=== PATIENT | female | born 1950 | race American Indian/Alaskan Native ===

== ENCOUNTER 2020-12-14 08:15 | Outpatient (CLI) | payer MEDICARE | END 2020-12-14 08:16 | disposition home or self-care (01) | LOC: LABHHL 08:15 | PROVIDERS: ATTEND Surgery | DX: N63.21 Unspecified lump in the left breast, upper outer quadrant (principal) | CPT/HCPCS: 88305 ==

== ENCOUNTER 2021-01-01 09:06 | Outpatient (CLI) | payer MEDICARE ==
--- NOTE | 2021-01-01 12:02 | Magnetic Resonance Report ---
Bilateral breast MR without and with contrast. History: Recently diagnosed left breast malignancy at the 2:00 position, assess extent of disease. Comparison: 12/13/2020, 01/18/2020. Technique: Multiplanar multisequence MR images of the breast were obtained before and after the intra venous administration of 16 ml of Clariscan intravenous contrast. Post processing analysis and review was performed on a separate computer workstation. Findings: Breast composition is scattered fibroglandular. There is mild background parenchymal enhancement with in both breasts. LEFT BREAST: Located within the left breast at the 2:00 posterior position is a 2.5 x 1.7 x 2.4 cm ir regular enhancing mass. A biopsy marker is located within posterior extent of this mass. This would c orrespond with the site of reported known biopsy-proven malignancy. Mild post biopsy changes are note d extending to the overlying skin. There is no evidence of skin or pectoralis muscle involvement. No additional suspicious findings within the left breast. RIGHT BREAST: No enhancing mass, dominant focus, or other abnormal enhancement is identified within t he right breast. Mildly enlarged left axillary lymph node with cortical thickness measuring up to 6 mm. No abnormal ri ght axillary lymph nodes or internal mammary lymph nodes. Impression: Known biopsy-proven malignancy within the left breast at the 2:00 position measures up to 2.5 cm. No additional suspicious findings within the left breast. Mildly enlarged left axillary lymph node. A targeted ultrasound of the left axilla may be considered with possible ultrasound guided core biopsy if an abnormal lymph node is identified. BIRADS 0: Incomplete--Needs Additional Imaging Evaluation. Signer Name: Ha Ladd MD Signed: 01/01/2021 11:57 AM Workstation Name: [id number]
== END 2021-01-01 09:07 | disposition home or self-care (01) ==
LOC: SPVIMAG 09:06
PROVIDERS: ATTEND Surgery
DX: C50.412 Malignant neoplasm of upper-outer quadrant of left female breast (principal); N64.89 Other specified disorders of breast; R59.0 Localized enlarged lymph nodes
CPT/HCPCS: A9575; C8908; 77049

== ENCOUNTER 2021-01-08 13:46 | Outpatient (CLI) | payer MEDICARE ==
--- NOTE | 2021-01-08 15:48 | Ultrasound Report ---
LEFT BREAST ULTRASOUND INDICATION: Questionable abnormal lymph nodes noted on recent breast MRI, patient with known left [place] ast malignancy. COMPARISON: MRI 01/01/2021. FINDINGS: A targeted ultrasound of the left axilla was performed. There is no evidence of abnormal ly mph nodes. Multiple lymph nodes are noted with cortical thickness measuring up to 2.7 mm with preserv ed fatty hilum. IMPRESSION: Normal left axillary lymph nodes. Continued clinical management of known left breast malignancy at th e 2:00 position. BI-RADS Category 6: Known Biopsy-Proven Malignancy. Signer Name: Ha Ladd MD Signed: 01/08/2021 3:44 PM Workstation Name: [id number]
== END 2021-01-08 13:47 | disposition home or self-care (01) ==
LOC: SPVWC 13:46
PROVIDERS: ATTEND Surgery
DX: R92.8 Other abnormal and inconclusive findings on diagnostic imaging of breast (principal); R59.0 Localized enlarged lymph nodes

== ENCOUNTER 2021-02-04 06:58 | Day surgery (SDC) | payer MEDICARE ==
[~2021-02-04 06:58] MED LIST: ACETAMINOPHEN 500 MG TAB PO SCH; LACTATED RINGERS 1,000 ML IV SCH; MIDAZOLAM 2 MG/2 ML INJ IV NR; ceFAZolin/STERILE WATER 2 GM/20 ML SYRINGE IV NR
[2021-02-04] MEDS ORDERED: LIDOCAINE (1%) 10 MG/1 ML VIAL 20 ML MDV ONE ×2 (07:45→08:56)
--- NOTE | 2021-02-04 08:48 | Anesthesia Day of Surgery ---
Anesthesia Day of Surgery - Day of Surgery Patient Examined: Yes Patient H&P Reviewed: Yes Patient is NPO: Yes
--- NOTE | 2021-02-04 08:48 | Anesthesia Consultation ---
Anesthesia Consult and Med Hx Date of service: 02/04/21 - Airway Anesthetic Teeth Evaluation: Good ROM Head & Neck: Adequate Mental/Hyoid Distance: Adequate Mallampati Class: Class III Intubation Access Assessment: Possibly Difficult - Pre-Operative Health Status ASA Pre-Surgery Classification: ASA2 Proposed Anesthetic Plan: General Nerve Block: PECS II - Pulmonary Hx Smoking: No Hx Respiratory Symptoms: No - Cardiovascular System Hx Hypertension: Yes (took antihypertensives last night) Hx Heart Attack/AMI: No Hx Percutaneous Transluminal Coronary Angioplasty (PTCA): No - Central Nervous System CVA: No - Endocrine Hx Renal Disease: No Hx Liver Disease: No Hx Insulin Dependent Diabetes: No Hx Non-Insulin Dependent Diabetes: No (borderline DM; no meds) Hx Thyroid Disease: No - Other Systems Hx Cancer: Yes (breast ca no chemo) Hx Obesity: Yes (BMI 36)
--- NOTE | 2021-02-04 08:54 | Mammography Report ---
MAMMOGRAPHIC GUIDED LEFT BREAST NEEDLE LOCALIZATION, 02/04/2021 CLINICAL INFORMATION / INDICATION: LT BREAST CANCER. COMPARISON: 12/13/2020 PROCEDURE: Risks, benefits and indications to the procedure were discussed with the patient. The patient agreed to proceed with both verbal and written consent. A timeout procedure was performed with 2 patient joss ntifiers. The breast was prepped in the usual sterile fashion. Approximately 5cc of Lidocaine was used for loca l anesthesia. Under direct digital mammographic guidance, a localization wire was placed in satisfact ory position with distal tip traversing the targeted area. Post-procedure mammogram confirms satisfac tory positioning of the localization wire. The wire was secured to the skin with a sterile dressing. The patient tolerated procedure without difficulty. No complications were encountered. IMPRESSION: 1. Satisfactory mammographic guided wire localization. Signer Name: Reese Mccarthy MD Signed: 02/04/2021 8:49 AM Workstation Name: [id number]
[2021-02-04] MEDS ORDERED: dexAMETHasone 4 MG/ML VIAL ONE (08:56)
[2021-02-04] MEDS ORDERED: BUPIVACAINE/PF (0.5%) 5 MG/1 ML 30 ML VIAL INFILTRATI ONE (08:56)
[2021-02-04] MEDS ORDERED: propofoL 200 MG/20 ML VIAL IV ONE (08:58)
[2021-02-04] MEDS ORDERED: fentaNYL 100 MCG/2 ML INJ ONE (08:58)
[2021-02-04] MEDS ORDERED: LIDOCAINE PF 100 MG/5 ML (CARDIAC SYRINGE) IV ONE (08:59)
[2021-02-04] MEDS: fentaNYL 100 MCG/2 ML INJ IV PRN ×2 (09:05→09:08)
[2021-02-04] MEDS ORDERED: SODIUM CHLORIDE P/F VIAL 10 ML 10 ML ONE (09:37)
[2021-02-04] MEDS ORDERED: METHYLENE BLUE 50 MG/10 ML AMP ONE (09:37)
[2021-02-04] MEDS ORDERED: ePHEDrine SULFATE 50 MG/1 ML INJ ONE (09:47)
[2021-02-04] MEDS ORDERED: WATER FOR IRRIG STERILE 1,500 ML BOTTLE IR ONE (10:16)
[2021-02-04] MEDS ORDERED: METHYLENE BLUE 50 MG/10 ML AMP IRRIGATION ONE (10:22)
[2021-02-04] MEDS ORDERED: SODIUM CHLORIDE 0.9% P/F 10 ML VIAL INFILTRATI ONE (10:22)
[2021-02-04] MEDS ORDERED: ONDANSETRON 4 MG/2 ML INJ ONE ×2 (11:28→14:22)
[2021-02-04] MEDS ORDERED: NEOMY 40 MG/POLYMYXIN B 200,000 UNITS/ML (GU) AMPULE IR ONE ×2 (12:04→12:11)
[2021-02-04] MEDS ORDERED: BACITRACIN ZINC OINT 28.4 GM TP ONE ×2 (13:36→13:38)
--- NOTE | 2021-02-04 14:01 | Short Stay Summary ---
Short Stay Documentation Date of service: 02/04/21 - History H&P: obtained from office - Allergies and Medications Current Medications: Allergies lisinopril Allergy (Verified 01/29/21 13:16) Unknown Home Medications Medication Instructions Recorded Confirmed Last Taken Type Aspirin [Adult Aspirin] 81 mg PO DAILY 01/29/21 02/04/21 01/31/21 History Lovastatin [Altoprev] 20 mg PO HS 01/29/21 01/29/21 02/03/21 21:30 History allopurinoL [Zyloprim] 100 mg PO QDAY 01/29/21 01/29/21 02/03/21 History amLODIPine [Norvasc] 10 mg PO DAILY 01/29/21 02/04/21 02/03/21 21:30 History hydroCHLOROthiazide [HCTZ] 25 mg PO QDAY 01/29/21 01/29/21 02/03/21 History Ibuprofen [Motrin 800 MG tab] 800 mg PO Q8HR PRN #12 tablet 02/04/21 Unknown Rx Active Medications Acetaminophen (Acetaminophen 500 Mg Tab) 1,000 mg PO PREOP TRAE Stop: 02/04/21 23:59 Last Admin: 02/04/21 08:50 Dose: 1,000 mg Documented by: Cefazolin Sodium (Cefazolin/Sterile Water 2 Gm/20 Ml Syringe) 2 gm IV PREOP NR Stop: 02/04/21 23:59 Fentanyl (Fentanyl 100 Mcg/2 Ml Inj) 100 mcg IV ONCE PRN PRN Reason: sedation for nerve block Stop: 02/04/21 23:59 Last Admin: 02/04/21 09:08 Dose: 50 mcg Documented by: Lactated Ringer's (Lactated Ringers) 1,000 mls @ 100 mls/hr IV DIRECT TRAE Stop: 02/04/21 23:59 Last Admin: 02/04/21 08:55 Dose: 100 mls/hr Documented by: Midazolam HCl (Midazolam 2 Mg/2 Ml Inj) 2 mg IV PREOP NR Stop: 02/04/21 23:59 Last Admin: 02/04/21 09:05 Dose: 2 mg Documented by: - Brief post op/procedure progress note Date of procedure: 02/04/21 Pre-op diagnosis: Left breast cancer upper outer quadrant Post-op diagnosis: same Procedure: Left partial mastectomy with SLNB and placement of Biozorb Anesthesia: GETA Findings: left breast mass 2:00 position 6-7 cm FN Surgeon: DAVID SADLER Estimated blood loss: minimal Pathology: list Specimen disposition: to lab Condition: stable - Disposition Condition at discharge: Good Disposition: DC- TO HOME OR SELFCARE Short Stay Discharge Plan Activity: other (no heavy lifting) Diet: regular Wound: keep clean and dry (wear breast binder; may shower in 48 hours; apply bacitracin twice daily; no baths, pools or lakes) Follow up with: DAVID SADLER MD [Staff Physician] - 7 Days Forms: Outpatient Surgery DC Inst. Prescriptions: Ibuprofen [Motrin 800 MG tab] 800 mg PO Q8HR PRN #12 tablet PRN Reason: Pain , Severe (7-10)
--- NOTE | 2021-02-04 14:11 | Operative Report ---
Operative Report Operative Report: Operative Report: February 04, 2021 Preoperative diagnosis: Left breast cancer of the upper outer quadrant Postoperative diagnosis: Same Procedure: Left breast needle localization partial mastectomy of the upper outer quadrant with SLNB and placement of BioZorb marker Surgeon: Ning Menendez MD Tool Storage Attendant: Stevo Mullen MD Anesthesia: General Findings: Left wire and clip present within radiograph specimen; x4 SLNs; placement of BioZorb marker Complications: None EBL: Less than 50 cc Disposition: PACU in good condition Indications for operative procedure: This is a 70 year old lady with newly diagnosed left breast cancer of the upper outer quadrant, ILCA grade 2 Stage I- II [id number] ER/DC positive (2:00 position 6-7 cm FN). Recommendations are to proceed with breast conservation. Radiology to place wire at location of known cancer. She understands the role of adjuvant radiation therapy and Oncotype DX will be obtained by medical oncology. She wished to proceed with the above procedure. Procedure in detail: The patient was taken to radiology for wire placement for localization known area of cancer. Anesthesia placed left pectoral block. Patient was then taken to the operating room. Gen. anesthesia was administered. The left nipple was injected with radioisotope and 1 cc of methylene blue dye. Left breast and axilla were prepped and draped in the normal sterile operative fashion. The wire was identified. Timeout was performed. Gamma probe was inserte d into the axilla. The area of hot spot was identified. A left axillary incision was made with a 15 blade knife with dissection taken down to the subcutaneous tissues. The axillary fascia was opened with the Bovie cautery. 4 SLNs were identified and dissected free (2 specimens may represent lymphatics; 2 SLN with methylene blue dye present within SLNs). All remaining counts were less than 10% of the highest count. Lymph nodes were sent to pathology for permanent processing. Hemostasis was obtained in the right axillary cavity. Axillary cavity was appropriately irrigated and suctioned. Hemostasis was noted. Axillary fascia was approximated and closed using interrupted 3-0 Vicryl and the skin brought together and closed using a running 4-0 Monocryl followed by skin affix. Attention was then taken towards the left breast. Ultrasound was used as well to identify the area of known malignancy. A periareolar breast incision around 2:00 position was made with a 15 blade knife and dissection taken down to subcutaneous tissues. First began raising of the lateral flap with removal of the wire from the skin with dissection taken laterally past the area of known malignancy and then taken down to the pectoralis muscle, followed by raising of the inferior flap, superior flap and lateral flap with all flaps taken past the area of known malignancy and then posteriorly down to the pectoralis muscle. The breast area of concern was appropriately removed posteriorly from the pectoralis muscle with the aid of the Bovie cautery. The wire was not encountered. Specimen was marked and then sent to pathology and radiology; radiograph specimen with wire and clip present. Ultrasound useds as well with appropriate appearing margins. Breast cavity was irrigated and hemostasis was obtained. Then proceeded with placement of BioZorb marker lot [id number]. The posterior deep breast tissues were then mobilized to approximate and cover the area of the defect of at least 7-8 cm. The posterior deep breast tissues were approximated and closed using interrupted 3-0 Vicryl. The BioZorb of 2x2 centimeters was then sutured into place using interrupted 2-0 PDS, placing 5 sutures. Anterior breast tissue were then approximated and closed using interrupted 3-0 Vicryl. The BioZorb was not easily palpable. The subcutaneous tissues were then approximated and closed using interrupted 3-0 Vicryl followed by closing of the skin with a running 4-0 Monocryl and skin affix. The patient tolerated surgery very well and she was awaken from anesthesia without any complication and transported to PACU in good condition.
[2021-02-04] MEDS ORDERED: ONDANSETRON 4 MG/2 ML INJ IV NR (14:25)
[2021-02-04] MEDS ORDERED: fentaNYL 100 MCG/2 ML INJ IV PRN (14:31)
[2021-02-04] MEDS ORDERED: HYDROcodone/ACETAMINOPHEN 5-325 MG TAB PO PRN (14:31)
[2021-02-04] MEDS ORDERED: ONDANSETRON 4 MG/2 ML INJ IV ONE (14:32)
[2021-02-04] MEDS ORDERED: PROMETHAZINE 12.5 MG/10 ML ORAL LIQD PO ONE (14:40)
--- NOTE | 2021-02-04 16:39 | Post Anesthesia Evaluation ---
- Post Anesthesia Evaluation Patient Participated: Yes Airway Patent: Yes Stable Respiratory Function: Yes Nausea/Vomiting: Yes (improved w/ antiemetics) Temp > 96.8F: Yes Pain Manageable: Yes Adequeate Hydration: Yes Anesthesia Complications: No
[2021-02-04 16:56] VITALS: BP 135/62
--- NOTE | 2021-02-05 09:11 | Mammography Report ---
LEFT BREAST SPECIMEN RADIOGRAPH INDICATION / CLINICAL INFORMATION: Post excisional biopsy. COMPARISON: Needle localization procedure earlier on the same date. FINDINGS: The targeted focal asymmetric density and associated biopsy clip are located within the submitted [place] ast specimen. The localizing wire is included with the specimen and is intact. Signer Name: Varghese Jaime MD Signed: 02/05/2021 8:51 AM Workstation Name: [id number]
== END 2021-02-04 15:40 | disposition home or self-care (01) ==
LOC: OR 06:58
PROVIDERS: ATTEND Surgery
DX: C50.412 Malignant neoplasm of upper-outer quadrant of left female breast (principal); Z20.822 Contact with and (suspected) exposure to COVID-19; I89.8 Other specified noninfective disorders of lymphatic vessels and lymph nodes; E78.00 Pure hypercholesterolemia, unspecified; I10 Essential (primary) hypertension; E66.9 Obesity, unspecified; M19.90 Unspecified osteoarthritis, unspecified site; E11.9 Type 2 diabetes mellitus without complications; Z17.0 Estrogen receptor positive status [ER+]; Z88.8 Allergy status to other drugs, medicaments and biological substances; Z79.82 Long term (current) use of aspirin; Z79.899 Other long term (current) drug therapy; Z98.41 Cataract extraction status, right eye; Z98.42 Cataract extraction status, left eye; Z90.710 Acquired absence of both cervix and uterus; Z98.890 Other specified postprocedural states; Z68.36 Body mass index [BMI] 36.0-36.9, adult
CPT/HCPCS: 19281; 19301; 38525; 38792; 64450; 76098; 78800; 88307; 88341; 88342; A4648; A9541; J0690; J1100; J2001; J2250; J2405; J2704; J3010; J7120; Q0169; Q9968; U0003; 88333